=== PATIENT | female | born 1980 | race Caucasian/White ===

== ENCOUNTER 2019-01-25 14:01 | Outpatient (CLI) | payer BC ==
[2019-01-25 14:54] LABS: Anion Gap 14 mmol/L (10-20); BUN (Urea Nitrogen) 15 mg/dL (7.0-18.7); Calc. Creatinine Clearance 0 mL/min (70-130); Calcium 9.4 mg/dL (7.8-10.44); Carbon Dioxide 26 mmol/L (22-29); Chloride 102 mmol/L (98-107); Estimated GFR-MDRD 56; Glucose 261 mg/dL (70-105); Potassium 3.8 mmol/L (3.5-5.1); Sodium 138 mmol/L (136-145)
== END 2019-01-25 14:02 | disposition home or self-care (01) ==
LOC: LABBT 14:01
PROVIDERS: ATTEND Orthopaedic Surgery
DX: Z01.812 Encounter for preprocedural laboratory examination (principal); N80.3 Endometriosis of pelvic peritoneum; N83.9 Noninflammatory disorder of ovary, fallopian tube and broad ligament, unspecified
CPT/HCPCS: 80048

== ENCOUNTER 2019-01-30 07:17 | Day surgery (SDC) | payer BC ==
[2019-01-25 13:36] VITALS: BMI 42.3
[2019-01-25 14:35] LABS: Hemoglobin 14.9 g/dL (12.0-16.0); Mean Corpuscular HGB CONC 34.6 g/dL (32.0-36.0); Mean Corpuscular Hemoglobin 31.4 pg (27.0-31.0); Mean Corpuscular Volume 90.6 fL (78.0-98.0); Mean Platelet Volume 8.8 fL (7.4-10.4); Platelet Count 234 thou/uL (130-400); RBC Distribution Width 11.4 % (11.5-14.5); Red Blood Cell (RBC) Count 4.75 mill/uL (4.20-5.40); White Blood Cell (WBC) Count 7.4 thou/uL (4.8-10.8)
[2019-01-30] MEDS ORDERED: Gabapentin 300 MG CAP ONE (07:46)
[2019-01-30] MEDS ORDERED: CeleCOXIB 100 MG CAP ONE (07:46)
[2019-01-30] MEDS ORDERED: Famotidine/PF 20 mg/2ml Vial ONE (07:46)
--- NOTE | 2019-01-30 08:06 | HP ---
REASON FOR ADMISSION: Complex right adnexal mass and chronic pelvic pain, and desiring bilateral salpingo-oophorectomy. SCHEDULED PROCEDURE: Total laparoscopic bilateral salpingo-oophorectomy with da Miko. HISTORY OF PRESENT ILLNESS: Ms. Granda is a 38-year-old 1, para 1, status post hysterectomy, not by Dr. Yanira Booth, who has a long history of chronic right pelvic pain. She was found to have an endometriosis and endometrioma when she had her hysterectomy with Dr. Yanira Booth. She has had worsening of pain and in October had a CT scan at [facility] in [place], which revealed a complex cystic right ovary, 6 cm in greatest diameter, ultrasound confirmed. PAST MEDICAL HISTORY: Diabetes, hyperlipidemia, and hypothyroidism. PAST SURGICAL HISTORY: Knee arthroscopy, hysterectomy, and C-sections. ALLERGIES: AMBIEN. MEDICATIONS: 1. Atorvastatin. 2. Fenofibrate. 3. Fluoxetine. 4. Glimepiride. 5. Hydrochlorothiazide. 6. Januvia. 7. Synthroid. 8. Metformin. 9. Metoprolol. SOCIAL HISTORY: Denies current tobacco, alcohol, or IV drug use. FAMILY HISTORY: Noncontributory. REVIEW OF SYSTEMS: Noncontributory. PHYSICAL EXAMINATION: GENERAL: White female. VITAL SIGNS: 5 feet tall, 224 pounds, and BMI 43. Blood pressure 112/76, pulse 86, and respirations 18. HEENT: Within normal limits. LUNGS: Clear to auscultation bilaterally. HEART: Regular rhythm. BREASTS: No masses bilaterally. ABDOMEN: Soft, nontender, and obese. Vulva without lesions. Vaginal cuff is well healed. She has discomfort on the right without palpable mass. EXTREMITIES: No clubbing, cyanosis, or edema. LABORATORY DATA: CA-[address] and ultrasound as noted in the HPI. IMPRESSION: History of endometriosis, endometrioma, and chronic pelvic pain, status post hysterectomy desiring definitive surgical management. PLAN: Laparoscopic bilateral salpingo-oophorectomy. The patient understands risks and benefits of procedure including incomplete removal of ovaries and requirement for hormone replacement therapy postoperatively. She has verbal and written informed consent for the procedure. Job ID: [id number]
[2019-01-30] MEDS ORDERED: Bupivacaine PF 0.5% 30 ML VIAL ONE (09:23)
[2019-01-30] MEDS ORDERED: Fentanyl 250 MCG/5 ML VIAL ONE (09:29)
[2019-01-30] MEDS ORDERED: Midazolam HCl 2 mg/2 ml Vial ONE (09:29)
[2019-01-30] MEDS ORDERED: Fentanyl 100 MCG/2 ML VIAL ONE ×2 (10:43→11:39)
--- NOTE | 2019-01-30 12:01 | OP ---
DATE OF PROCEDURE: 01/30/2019 PREOPERATIVE DIAGNOSES: Right ovarian cyst on CT and ultrasound in October with chronic pelvic pain, desires bilateral salpingo-oophorectomy. POSTOPERATIVE DIAGNOSES: Right ovarian cyst on CT and ultrasound in October with chronic pelvic pain, desires bilateral salpingo-oophorectomy plus extensive omental FINDINGS: Extensive omental adhesions, pelvic adhesions of bowel. Unable to definitively locate right adnexa. Left adnexa noted to be densely adherent to the sigmoid and pelvic sidewall and good hemostasis at the end of the procedure. PROCEDURE PERFORMED: Extensive lysis of adhesions, omental and bowel with left salpingectomy, unable to complete left salpingectomy, left oophorectomy. Unable to locate right adnexa. ANESTHESIA: General endotracheal. ESTIMATED BLOOD LOSS: Less than 25 mL. SPECIMENS REMOVED: Left fallopian tube. DESCRIPTION OF PROCEDURE: Photo documentation was obtained at the end of the procedure. The patient was prepped and draped in dorsal lithotomy in Mukul stirrups. Sponge stick was placed in the vagina. Walls catheter was placed in the bladder, drained of clear urine. Gasoline Tractor Operator changed his gloves, turned attention to abdominal portion of the procedure. A 5 mL of Marcaine injected 2 cm of the umbilicus and a Veress needle was placed inside the abdominal cavity. Insufflation was carried out with carbon dioxide at maximum pressure of 15. A long Elmer 12-mm trocar was introduced into the abdominal cavity. The Elmer with a ballooned tip, it was pulled snugly against the abdominal cavity. The camera was introduced and extensive adhesions up to the level of the umbilicus were noted. Right and left lateral trocars were placed laterally to epigastric vessels. 5 mm trocar was placed in the right upper quadrant. Monopolar scissors were placed in the right hand and bipolar fenestrated forceps in the left. Adhesions were taken down in a stepwise manner extensively over approximately 25 minutes on the anterior abdominal wall, taking the omentum down to the level of previous Pfannenstiel incision. This was after the da Miko robot was docked in max Trendelenburg. Extensive adhesions of the cecum and the sigmoid and rectum were noted throughout the pelvis. These were taken down in a stepwise manner identifying the bladder and the apex of the vagina. The round ligament was identified on the right tracing it all the way down. The adnexa on the right could never be definitively identified and if present was in the retroperitoneum. I was unable to locate the ureter on that side as well. So, comfort level with further dissection was not achieved. Certainly nothing that appeared to be consistent with malignancy or large adnexal mass was noted on that side. Photodocumentation was obtained on the patient's left. Similar adhesions were encountered. The sigmoid flexure was noted at the level of the round ligament with adhesions. It was taken down in a stepwise manner. The fallopian tube and ovary on the left were identified, densely adherent posteriorly into the pelvis. The mesosalpinx was freed up and coagulated and transected and the fallopian tube removed on the left. However, the ovary was noted to be densely adherent as well and again with the patient's obesity, ureter could not be well delineated or identified. The da Miko was undocked. An 8-mm scope was placed lateral and the fallopian tube removed through the 12-mm Elmer in the midline using an atraumatic grasper. Good hemostasis was noted throughout. The abdomen was desufflated of carbon dioxide. Trocars were removed x4. The fascia at the Elmer in the midline was reapproximated using 0 Vicryl UR5 needle x2. Subcuticular stitches placed x4. Walls removed and sponge stick removed. The patient was awakened, extubated, and taken to the recovery room in good condition. Job ID: [id number]
== END 2019-01-30 15:35 | disposition home or self-care (01) ==
LOC: SDC 07:17
PROVIDERS: ATTEND Obstetrics & Gynecology
PROC: 0UT64ZZ Resection of Left Fallopian Tube, Percutaneous Endoscopic Approach (ICD-10-PCS; principal; 2019-01-30)
DX: N83.201 Unspecified ovarian cyst, right side (principal); G89.29 Other chronic pain; R10.2 Pelvic and perineal pain; N73.6 Female pelvic peritoneal adhesions (postinfective); N80.9 Endometriosis, unspecified; E11.9 Type 2 diabetes mellitus without complications; E78.5 Hyperlipidemia, unspecified; E03.9 Hypothyroidism, unspecified; I10 Essential (primary) hypertension; F32.9 Major depressive disorder, single episode, unspecified; E66.9 Obesity, unspecified; Z68.41 Body mass index [BMI] 40.0-44.9, adult; Z87.891 Personal history of nicotine dependence; Z79.1 Long term (current) use of non-steroidal anti-inflammatories (NSAID); Z79.82 Long term (current) use of aspirin; Z79.84 Long term (current) use of oral hypoglycemic drugs; Z79.899 Other long term (current) drug therapy; Z88.8 Allergy status to other drugs, medicaments and biological substances; Z90.710 Acquired absence of both cervix and uterus
CPT/HCPCS: 36416; 85027; 86850; 86900; 86901; 88305; J0690; J2250; J3010; S0020; S0028